=== PATIENT | male | born 1955 | race Hispanic/Latino ===

== ENCOUNTER 2022-10-04 19:43 | Observation (INO) | payer OTHER ==
[~2022-10-04] VITALS: Ht 180.3 cm; Wt 93.6 kg
[2022-10-04 20:03] LABS: BASOPHILS % (AUTO) 0.7 % (0.0-5.0); EOSINOPHILS % (AUTO) 1.4 % (0.0-8.0); HEMATOCRIT 30.9 % (42-54); LYMPHOCYTES % (AUTO) 19.2 % (21.0-51.0); MEAN CORPUSCULAR HEMOGLOBIN 31.5 pg (27.0-33.0); MEAN CORPUSCULAR HGB CONC 33.7 g/dL (32.0-36.0); MEAN CORPUSCULAR VOLUME 93.6 fL (79-99); MONOCYTES % (AUTO) 11.9 % (3.0-13.0); NEUTROPHILS % (AUTO) 66.6 % (40.0-77.0); PLATELET COUNT (AUTO) 145 K/uL (130-400); RED CELL DISTRIBUTION WIDTH 14.7 % (11.0-15.5); WHITE BLOOD COUNT (AUTO) 4.3 K/uL (4.8-10.8)
[2022-10-04 20:05] LABS: APPEARANCE,URINE CLEAR (CLEAR); BILIRUBIN,URINE NEGATIVE (NEGATIVE); COLOR,URINE YELLOW (YELLOW); GLUCOSE, URINE (UA) NEGATIVE (NEGATIVE); KETONES,URINE NEGATIVE (NEGATIVE); LEUKOCYTE ESTERASE ,URINE NEGATIVE Leu/uL (NEGATIVE); NITRATE,URINE NEGATIVE (NEGATIVE); OCCULT BLOOD,URINE NEGATIVE (NEGATIVE); PH,URINE 6.5 (5.0-8.0); PROTEIN,URINE 10 mg/dL (NEGATIVE)
[2022-10-04 20:07] LABS: MUCUS,URINE RARE LPF (None Seen); SQUAMOUS EPITHELIAL CELL,UR RARE /HPF (0-2)
[2022-10-04 20:12] LABS: CARBON DIOXIDE 29 mmol/L (21-32); CHLORIDE 103 mmol/L (101-111); CREATININE 1.6 mg/dL (0.5-1.5); GLOMERULAR FILTR. RATE CALC 48 mL/min (>90); GLUCOSE,RANDOM 97 mg/dL (70-105); POTASSIUM 3.8 mmol/L (3.5-5.1); SODIUM SERUM 137 mmol/L (136-145); UREA NITROGEN, BLOOD 21 mg/dL (7-18)
[2022-10-04 20:16] LABS: ALANINE AMINOTRANSFERASE 15 U/L (12-78); ALBUMIN 2.5 g/dL (3.5-5.0); ASPARTATE AMINOTRANSFERASE 28 U/L (10-37); TOTAL PROTEIN, SERUM 5.7 g/dL (6.0-8.3)
[2022-10-04 20:20] LABS: LIPASE < 50 U/L (114-286)
[2022-10-05] MEDS ORDERED: ACETAMINOPHEN 325 MG TAB PO PRN ×2 (01:30)
[2022-10-05] MEDS ORDERED: HYDROMORPHONE 1 MG INJ IV PRN (01:30)
[2022-10-05] MEDS ORDERED: HYDROCODONE/ACETAMINOPHEN 5/325 MG TAB PO PRN (01:30)
[2022-10-05] MEDS ORDERED: ONDANSETRON 4MG INJ IV PRN (01:30)
[2022-10-05] MEDS: FUROSEMIDE 40MG VIAL IV SCH ×2 (02:38→15:39)
[2022-10-05] MEDS: FAMOTIDINE 20MG TAB PO SCH (08:09)
[2022-10-05] MEDS: LACTULOSE 20 GM/30 ML UDCUP PO SCH ×2 (08:09→20:54)
[2022-10-05 10:30] VITALS: BP 129/72
[2022-10-05 16:00] VITALS: BP 122/70
[2022-10-05] MEDS ORDERED: FURO40TA5 PO (17:43)
[2022-10-05 20:00] VITALS: BP 127/70
[2022-10-06] VITALS: BP 120/57
[2022-10-06] MEDS: FUROSEMIDE 40MG VIAL IV SCH ×2 (03:02→14:11)
[2022-10-06 04:00] VITALS: BP 113/68
[2022-10-06 06:20] LABS: BASOPHILS % (AUTO) 0.9 % (0.0-5.0); EOSINOPHILS % (AUTO) 2.5 % (0.0-8.0); HEMATOCRIT 34.8 % (42-54); LYMPHOCYTES % (AUTO) 13.6 % (21.0-51.0); MEAN CORPUSCULAR HGB CONC 32.2 g/dL (32.0-36.0); MEAN CORPUSCULAR VOLUME 96.4 fL (79-99); MONOCYTES % (AUTO) 11.6 % (3.0-13.0); PLATELET COUNT (AUTO) 114 K/uL (130-400); RED BLOOD CELL COUNT(AUTO) 3.61 MIL/uL (4.50-6.20); RED CELL DISTRIBUTION WIDTH 14.6 % (11.0-15.5); WHITE BLOOD COUNT (AUTO) 4.5 K/uL (4.8-10.8)
[2022-10-06 06:40] LABS: CREATININE 1.6 mg/dL (0.5-1.5); MAGNESIUM 1.8 mg/dL (1.80-2.40); PHOSPHORUS 4.5 mg/dL (2.5-4.9); POTASSIUM 3.4 mmol/L (3.5-5.1)
[2022-10-06 08:00] VITALS: BP 112/56
[2022-10-06 08:38] LABS: INR 0.99 (0.85-1.15); PROTHROMBIN TIME 10.8 SEC (9.6-11.6)
[2022-10-06 08:39] LABS: PARTIAL THROMBOPLASTIN TIME 33.7 SEC (26.3-35.5)
[2022-10-06] MEDS: LACTULOSE 20 GM/30 ML UDCUP PO SCH (09:28)
[2022-10-06] MEDS: FAMOTIDINE 20MG TAB PO SCH (09:28)
[2022-10-06] MEDS ORDERED: MAGNESIUM HYDROXIDE 30 ML/UDCUP PO SCH (10:00)
[2022-10-06] MEDS ORDERED: LIDOCAINE HCL 1% 20 ML VIAL ONE (10:30)
[2022-10-06] MEDS ORDERED: ALBUMIN (HUMAN) 25% 100 ML IV SCH (11:00)
[2022-10-06] MEDS ORDERED: ALBUMIN (HUMAN) 25% 200 ML IV SCH (11:00)
[2022-10-06 12:31] LABS: BODY FLUID RBC 10 /cu. mm.; BODY FLUID WBC 288 /cu. mm.
[2022-10-06 13:06] LABS: BF LYMPHOCYTE 32 %; BF MESOTHELIAL 66 %
[2022-10-06 13:14] LABS: APPEARANCE BODY FLUID CLOUDY (CLEAR); SPECIMENTYPE,BODY FLUID ASCITES
[2022-10-06 13:15] LABS: COLOR,BODY FLUID LT YELLOW (LT YELLOW); TOTAL VOLUME,BODY FLUID 8200 mL
[2022-10-06] MEDS ORDERED: POTASSIUM CHLORIDE 10% ELIXIR 20 MEQ/15 ML UDCUP PO PRN (13:30)
[2022-10-06] MEDS ORDERED: MAGNESIUM 2GM PREMIX 50ML 50 ML IV PRN (13:30)
[2022-10-06] MEDS ORDERED: KCL 20 MEQ ERTAB PO PRN (13:30)
[2022-10-06] MEDS ORDERED: POTASSIUM CHLORIDE 20MEQ/100ML 100 ML IV PRN (13:30)
== END 2022-10-06 18:30 | disposition still patient (30) ==
LOC: EDH 19:43 → EDHIP 10-05 01:02 → INTOOBSV 10-05 01:02 → 3BH 10-05 10:30
PROVIDERS: ADMIT Internal Medicine; ATTEND Internal Medicine
DX: J96.01 Acute respiratory failure with hypoxia (principal); R18.8 Other ascites; K74.69 Other cirrhosis of liver; D64.9 Anemia, unspecified; D61.818 Other pancytopenia; E43 Unspecified severe protein-calorie malnutrition; C16.9 Malignant neoplasm of stomach, unspecified; I10 Essential (primary) hypertension; E11.9 Type 2 diabetes mellitus without complications; Z68.28 Body mass index [BMI] 28.0-28.9, adult; Z51.5 Encounter for palliative care; Z59.86 Financial insecurity; Z79.899 Other long term (current) drug therapy; Z98.890 Other specified postprocedural states; Z79.4 Long term (current) use of insulin
CPT/HCPCS: 99285; 80053; 83690; 85025 ×2; 81001; 36415 ×3; 74176; 96374; 96376 ×2; 96375; 82140; 86850; 86900; 86901; 71045; 83735; 84100; 80048; 89051; 85610; 85730; 87071; 87205; 49083; J1170; J2405; J1940 ×4; A4600; G0378 ×2; C1729

== ENCOUNTER 2022-10-14 04:50 | Emergency (ER) | payer OTHER ==
[~2022-10-14] VITALS: Ht 180.3 cm; Wt 89.8 kg
[~2022-10-14 04:50] MED LIST: FURO40TA5 PO
[2022-10-14 05:22] LABS: BASOPHILS % (AUTO) 0.5 % (0.0-5.0); EOSINOPHILS % (AUTO) 2.3 % (0.0-8.0); HEMATOCRIT 36.8 % (42-54); LYMPHOCYTES % (AUTO) 22.7 % (21.0-51.0); MEAN CORPUSCULAR HGB CONC 32.9 g/dL (32.0-36.0); MEAN CORPUSCULAR VOLUME 94.4 fL (79-99); MONOCYTES % (AUTO) 12.6 % (3.0-13.0); NEUTROPHILS % (AUTO) 61.6 % (40.0-77.0); PLATELET COUNT (AUTO) 128 K/uL (130-400); RED CELL DISTRIBUTION WIDTH 14.4 % (11.0-15.5); WHITE BLOOD COUNT (AUTO) 3.9 K/uL (4.8-10.8)
[2022-10-14 05:37] LABS: ALANINE AMINOTRANSFERASE 18 U/L (12-78); ALBUMIN 2.6 g/dL (3.5-5.0); ASPARTATE AMINOTRANSFERASE 28 U/L (10-37); CARBON DIOXIDE 34 mmol/L (21-32); CHLORIDE 100 mmol/L (101-111); CREATININE 1.6 mg/dL (0.5-1.5); GLOMERULAR FILTR. RATE CALC 48 mL/min (>90); GLUCOSE,RANDOM 113 mg/dL (70-105); POTASSIUM 4.1 mmol/L (3.5-5.1); SODIUM SERUM 138 mmol/L (136-145); TOTAL PROTEIN, SERUM 6.4 g/dL (6.0-8.3); UREA NITROGEN, BLOOD 30 mg/dL (7-18)
[2022-10-14 05:40] LABS: LIPASE < 50 U/L (114-286)
[2022-10-14 06:06] LABS: INR 0.93 (0.85-1.15)
[2022-10-14] MEDS ORDERED: SODIUM BICARB 50MEQ 50ML VIAL 50 ML ONE (08:27)
[2022-10-14] MEDS ORDERED: LIDOCAINE HCL 1% 20 ML VIAL ONE (08:27)
[2022-10-14] MEDS ORDERED: ALBUMIN (HUMAN) 25% 200 ML IV ONE (08:28)
[2022-10-14 10:09] VITALS: BP 108/64
== END 2022-10-14 10:51 | disposition home or self-care (01) ==
LOC: EDH 04:50
DX: K74.60 Unspecified cirrhosis of liver (principal); R18.8 Other ascites; I10 Essential (primary) hypertension; E11.9 Type 2 diabetes mellitus without complications; Z98.890 Other specified postprocedural states; Z88.8 Allergy status to other drugs, medicaments and biological substances
CPT/HCPCS: 49083; 99285; 96365; 80053; 82140; 83690; 85025; 85610; 85730; 36415; P9046; J3490; C1729

== ENCOUNTER 2022-11-05 12:56 | Emergency (ER) | payer OTHER, MEDICARE ==
[~2022-11-05] VITALS: Ht 180.3 cm; Wt 84.4 kg
[~2022-11-05 12:56] MED LIST changes: +LACT10SO9 PO; +MIDO10TA PO
[2022-11-05 13:31] LABS: BASOPHILS % (AUTO) 0.9 % (0.0-5.0); EOSINOPHILS % (AUTO) 1.8 % (0.0-8.0); HEMATOCRIT 37.2 % (42-54); MEAN CORPUSCULAR HEMOGLOBIN 30.2 pg (27.0-33.0); MEAN CORPUSCULAR HGB CONC 33.1 g/dL (32.0-36.0); MEAN CORPUSCULAR VOLUME 91.4 fL (79-99); MONOCYTES % (AUTO) 9.9 % (3.0-13.0); NEUTROPHILS % (AUTO) 68.2 % (40.0-77.0); PLATELET COUNT (AUTO) 175 K/uL (130-400); RED BLOOD CELL COUNT(AUTO) 4.07 MIL/uL (4.50-6.20); RED CELL DISTRIBUTION WIDTH 14.5 % (11.0-15.5); WHITE BLOOD COUNT (AUTO) 4.4 K/uL (4.8-10.8)
[2022-11-05 13:47] LABS: CREATININE 1.5 mg/dL (0.5-1.5); POTASSIUM 5.2 mmol/L (3.5-5.1)
[2022-11-05 13:51] LABS: ALBUMIN 2.4 g/dL (3.5-5.0); TOTAL PROTEIN, SERUM 5.4 g/dL (6.0-8.3)
[2022-11-05] MEDS ORDERED: IOHEXOL 350 MG/ML 100ML INFUS..BTL IV ONE (14:26)
[2022-11-05] MEDS ORDERED: 0.9%NACL 1000ML 1,000 ML IV ONE (15:00)
[2022-11-05 15:55] VITALS: BP 140/70
== END 2022-11-05 15:57 | disposition home or self-care (01) ==
LOC: EDH 12:56
DX: R18.8 Other ascites (principal); K74.60 Unspecified cirrhosis of liver; E78.00 Pure hypercholesterolemia, unspecified; I10 Essential (primary) hypertension; Z88.1 Allergy status to other antibiotic agents; Z85.028 Personal history of other malignant neoplasm of stomach
CPT/HCPCS: 99285; 74177; 96360; 71045; 80053; 83690; 85025; 83605; 36415; 93005; J7030; Q9967

== ENCOUNTER 2022-11-06 20:47 | Emergency (ER) | payer OTHER, MEDICARE ==
[~2022-11-06] VITALS: Ht 180.3 cm; Wt 72.6 kg
[2022-11-06 21:46] LABS: BASOPHILS % (AUTO) 0.9 % (0.0-5.0); EOSINOPHILS % (AUTO) 1.6 % (0.0-8.0); HEMATOCRIT 35.7 % (42-54); LYMPHOCYTES % (AUTO) 22.1 % (21.0-51.0); MEAN CORPUSCULAR HGB CONC 33.3 g/dL (32.0-36.0); MONOCYTES % (AUTO) 12.1 % (3.0-13.0); NEUTROPHILS % (AUTO) 63.1 % (40.0-77.0); PLATELET COUNT (AUTO) 144 K/uL (130-400); RED BLOOD CELL COUNT(AUTO) 3.84 MIL/uL (4.50-6.20); RED CELL DISTRIBUTION WIDTH 14.5 % (11.0-15.5); WHITE BLOOD COUNT (AUTO) 4.5 K/uL (4.8-10.8)
[2022-11-06 22:06] LABS: INR 0.93 (0.85-1.15); PROTHROMBIN TIME 10.2 SEC (9.6-11.6)
[2022-11-06 22:07] LABS: ALBUMIN 2.3 g/dL (3.5-5.0); CREATININE 1.6 mg/dL (0.5-1.5); PARTIAL THROMBOPLASTIN TIME 29.4 SEC (26.3-35.5); POTASSIUM 5.1 mmol/L (3.5-5.1); TOTAL PROTEIN, SERUM 5.4 g/dL (6.0-8.3)
[2022-11-06 23:50] VITALS: BP 118/67
== END 2022-11-06 23:58 | disposition home or self-care (01) ==
LOC: EDH 20:47
DX: R13.10 Dysphagia, unspecified (principal); I10 Essential (primary) hypertension; R10.31 Right lower quadrant pain; Z79.899 Other long term (current) drug therapy; Z98.890 Other specified postprocedural states; Z85.028 Personal history of other malignant neoplasm of stomach; Z88.1 Allergy status to other antibiotic agents
CPT/HCPCS: 36415; 71045; 80053; 82550; 84484; 85025; 85610; 85730; 93005

== ENCOUNTER 2022-12-12 21:02 | Emergency (ER) | payer OTHER, MEDICARE ==
[~2022-12-12] VITALS: Ht 180.3 cm; Wt 74.8 kg
[2022-12-12 21:27] LABS: BASOPHILS % (AUTO) 0.2 % (0.0-5.0); EOSINOPHILS % (AUTO) 0.4 % (0.0-8.0); HEMATOCRIT 31.6 % (42-54); LYMPHOCYTES % (AUTO) 7.3 % (21.0-51.0); MEAN CORPUSCULAR HEMOGLOBIN 31.3 pg (27.0-33.0); MEAN CORPUSCULAR HGB CONC 34.8 g/dL (32.0-36.0); MEAN CORPUSCULAR VOLUME 89.8 fL (79-99); MONOCYTES % (AUTO) 3.3 % (3.0-13.0); PLATELET COUNT (AUTO) 110 K/uL (130-400); RED BLOOD CELL COUNT(AUTO) 3.52 MIL/uL (4.50-6.20); RED CELL DISTRIBUTION WIDTH 14.8 % (11.0-15.5); WHITE BLOOD COUNT (AUTO) 9.1 K/uL (4.8-10.8)
[2022-12-12 21:47] LABS: CREATININE 1.2 mg/dL (0.5-1.5); POTASSIUM 4.6 mmol/L (3.5-5.1)
[2022-12-12 21:52] LABS: ALBUMIN 2.2 g/dL (3.5-5.0); TOTAL PROTEIN, SERUM 5.3 g/dL (6.0-8.3)
[2022-12-12 23:33] LABS: APPEARANCE,URINE CLEAR (CLEAR); BILIRUBIN,URINE NEGATIVE (NEGATIVE); COLOR,URINE YELLOW (YELLOW); GLUCOSE, URINE (UA) NEGATIVE (NEGATIVE); KETONES,URINE NEGATIVE (NEGATIVE); LEUKOCYTE ESTERASE ,URINE NEGATIVE Leu/uL (NEGATIVE); NITRATE,URINE NEGATIVE (NEGATIVE); OCCULT BLOOD,URINE NEGATIVE (NEGATIVE); PROTEIN,URINE NEGATIVE (NEGATIVE); UROBILINOGEN,URINE 0.2 mg/dL (0.2-1.0)
[2022-12-13 01:42] VITALS: BP 115/67
== END 2022-12-13 01:43 | disposition home or self-care (01) ==
LOC: EDH 21:02
DX: C16.9 Malignant neoplasm of stomach, unspecified (principal); D64.9 Anemia, unspecified; Z88.1 Allergy status to other antibiotic agents; Z20.822 Contact with and (suspected) exposure to COVID-19
CPT/HCPCS: 99285; 71045; 87635; 84484; 80053; 85025; 87040 ×2; 87880; 87804 ×2; 81003; 36415; C9803

== ENCOUNTER 2022-12-16 12:31 | Observation (INO) | payer OTHER, MEDICARE ==
[~2022-12-16] VITALS: Ht 172.7 cm; Wt 73.8 kg
[2022-12-16] MEDS ORDERED: ONDANSETRON 4MG INJ IVP ONE (13:00)
[2022-12-16] MEDS ORDERED: LACTATED RINGERS 1000ML 1,000 ML IV ONE (13:00)
[2022-12-16] MEDS ORDERED: MORPHINE 4 MG SYG IVP ONE (13:00)
[2022-12-16 13:31] LABS: BASOPHILS % (AUTO) 0.1 % (0.0-5.0); EOSINOPHILS % (AUTO) 0.1 % (0.0-8.0); HEMATOCRIT 33.8 % (42-54); LYMPHOCYTES % (AUTO) 3.8 % (21.0-51.0); MEAN CORPUSCULAR HEMOGLOBIN 31.3 pg (27.0-33.0); MEAN CORPUSCULAR HGB CONC 34.6 g/dL (32.0-36.0); MEAN CORPUSCULAR VOLUME 90.4 fL (79-99); NEUTROPHILS % (AUTO) 86.5 % (40.0-77.0); PLATELET COUNT (AUTO) 155 K/uL (130-400); RED BLOOD CELL COUNT(AUTO) 3.74 MIL/uL (4.50-6.20); RED CELL DISTRIBUTION WIDTH 14.8 % (11.0-15.5); WHITE BLOOD COUNT (AUTO) 7.5 K/uL (4.8-10.8)
[2022-12-16 13:33] LABS: APPEARANCE,URINE CLEAR (CLEAR); BILIRUBIN,URINE NEGATIVE (NEGATIVE); COLOR,URINE YELLOW (YELLOW); GLUCOSE, URINE (UA) NEGATIVE (NEGATIVE); KETONES,URINE NEGATIVE (NEGATIVE); LEUKOCYTE ESTERASE ,URINE NEGATIVE Leu/uL (NEGATIVE); NITRATE,URINE NEGATIVE (NEGATIVE); OCCULT BLOOD,URINE NEGATIVE (NEGATIVE); PROTEIN,URINE 10 mg/dL (NEGATIVE)
[2022-12-16 13:41] LABS: CARBON DIOXIDE 25 mmol/L (21-32); CHLORIDE 95 mmol/L (101-111); CREATININE 1.6 mg/dL (0.5-1.5); GLOMERULAR FILTR. RATE CALC 48 mL/min (>90); GLUCOSE,RANDOM 175 mg/dL (70-105); POTASSIUM 5.1 mmol/L (3.5-5.1); SODIUM SERUM 127 mmol/L (136-145); UREA NITROGEN, BLOOD 38 mg/dL (7-18)
[2022-12-16 13:45] LABS: ALANINE AMINOTRANSFERASE 44 U/L (12-78); ALBUMIN 1.9 g/dL (3.5-5.0); ASPARTATE AMINOTRANSFERASE 33 U/L (10-37); TOTAL PROTEIN, SERUM 5.4 g/dL (6.0-8.3)
[2022-12-16 13:51] LABS: BACTERIA,URINE RARE /HPF (None Seen); MUCUS,URINE RARE LPF (None Seen); RBC,URINE 0-1 /HPF (0-1); SQUAMOUS EPITHELIAL CELL,UR RARE /HPF (0-2); WBC,URINE 0-1 /HPF (0-1)
[2022-12-16 13:53] LABS: LIPASE < 50 U/L (114-286)
[2022-12-16] MEDS ORDERED: IOHEXOL-350 75 ML VIAL IV ONE (14:54)
[2022-12-16] MEDS ORDERED: GUAIFENESIN SUGAR-FREE 100 MG/5 ML UDCUP PO PRN (16:30)
[2022-12-16] MEDS ORDERED: LACTULOSE 20 GM/30 ML UDCUP PO PRN (16:30)
[2022-12-16] MEDS ORDERED: ALBUTEROL 0.083% 2.5 MG/3 ML INH IH PRN (16:30)
[2022-12-16] MEDS ORDERED: ACETAMINOPHEN 325 MG TAB PO PRN ×2 (16:30)
[2022-12-16] MEDS ORDERED: DOCUSATE SODIUM 100 MG CAP PO PRN (16:30)
[2022-12-16] MEDS ORDERED: LOPERAMIDE HCL 2 MG CAP PO PRN (16:30)
[2022-12-16] MEDS ORDERED: ARTIFICAL TEARS SOL 15 ML OP PRN (16:30)
[2022-12-16] MEDS ORDERED: DEXTROSE 50%-WATER 50 ML DISP.SYRIN IV PRN (16:30)
[2022-12-16] MEDS ORDERED: ONDANSETRON 4MG INJ IV PRN (16:30)
[2022-12-16] MEDS ORDERED: MAGNESIUM 2GM PREMIX 50ML 50 ML IV PRN (16:30)
[2022-12-16] MEDS ORDERED: HYDRALAZINE 25MG TABLET PO PRN (16:30)
[2022-12-16] MEDS ORDERED: GLUCAGON 1MG KIT 1 MG ML IM PRN (16:30)
[2022-12-16] MEDS ORDERED: ALPRAZOLAM 0.5 MG TABLET PO PRN (16:30)
[2022-12-16] MEDS ORDERED: CEFTRIAXONE 2GM VIAL IVPB SCH (16:30)
[2022-12-16] MEDS ORDERED: DIPHENHYDRAMINE HCL 25 MG CAPSULE PO PRN (16:30)
[2022-12-16] MEDS ORDERED: DiphenhydrAMINE HCL 50 MG/ML VIAL IV PRN (16:30)
[2022-12-16] MEDS ORDERED: POTASSIUM CHLORIDE 10MEQ/100ML 100 ML IV PRN (16:30)
[2022-12-16] MEDS ORDERED: POLYETHYLENE GLYCOL 3350 17 GM POWD.PACK PO PRN (16:30)
[2022-12-16] MEDS ORDERED: GUAIFENESIN-DM 200/20 MG 10 ML PO PRN (16:30)
[2022-12-16 16:58] LABS: INR 0.93 (0.85-1.15); PROTHROMBIN TIME 10.4 SEC (9.6-11.6)
[2022-12-16 16:59] LABS: PARTIAL THROMBOPLASTIN TIME 32.6 SEC (26.3-35.5)
[2022-12-16 22:42] VITALS: BP 124/74
[2022-12-17 04:00] VITALS: BP 113/57
[2022-12-17 07:05] LABS: ALBUMIN 1.7 g/dL (3.5-5.0); CREATININE 1.3 mg/dL (0.5-1.5); MAGNESIUM 1.8 mg/dL (1.80-2.40); POTASSIUM 4.8 mmol/L (3.5-5.1); TOTAL PROTEIN, SERUM 4.9 g/dL (6.0-8.3)
[2022-12-17 08:00] VITALS: BP 100/63
[2022-12-17 12:00] VITALS: BP 125/75
== END 2022-12-17 17:20 | disposition home or self-care (01) ==
LOC: EDH 12:31 → EDHIP 16:19 → 3CH 22:01
PROVIDERS: ADMIT Internal Medicine Critical Care Medicine; ATTEND Internal Medicine Critical Care Medicine
DX: T85.611A Breakdown (mechanical) of intraperitoneal dialysis catheter, initial encounter (principal); K74.60 Unspecified cirrhosis of liver; R18.8 Other ascites; I12.9 Hypertensive chronic kidney disease with stage 1 through stage 4 chronic kidney disease, or unspecified chronic kidney disease; N18.9 Chronic kidney disease, unspecified; N17.9 Acute kidney failure, unspecified; E87.1 Hypo-osmolality and hyponatremia; E78.5 Hyperlipidemia, unspecified; E88.09 Other disorders of plasma-protein metabolism, not elsewhere classified; Z85.028 Personal history of other malignant neoplasm of stomach; Z92.21 Personal history of antineoplastic chemotherapy; Z79.899 Other long term (current) drug therapy
CPT/HCPCS: 96361; 96365; 96366; 96375; 99285; 80053 ×2; 83880; 83690; 85025; 85610; 85730; 83605; 81001; 36415 ×2; 74177; 83735; G0378 ×25; J7120; J0696; J2405; J2270; Q9967

== ENCOUNTER 2022-12-19 21:22 | Emergency (ER) | payer OTHER, MEDICARE ==
[~2022-12-19] VITALS: Ht 180.3 cm; Wt 74.8 kg
[2022-12-19 22:06] LABS: BASOPHILS % (AUTO) 0.2 % (0.0-5.0); EOSINOPHILS % (AUTO) 0.5 % (0.0-8.0); HEMATOCRIT 27.7 % (42-54); LYMPHOCYTES % (AUTO) 6.3 % (21.0-51.0); MEAN CORPUSCULAR HEMOGLOBIN 32.2 pg (27.0-33.0); MEAN CORPUSCULAR HGB CONC 35.4 g/dL (32.0-36.0); MEAN CORPUSCULAR VOLUME 91.1 fL (79-99); MONOCYTES % (AUTO) 8.9 % (3.0-13.0); NEUTROPHILS % (AUTO) 83.2 % (40.0-77.0); PLATELET COUNT (AUTO) 186 K/uL (130-400); RED BLOOD CELL COUNT(AUTO) 3.04 MIL/uL (4.50-6.20); RED CELL DISTRIBUTION WIDTH 15.1 % (11.0-15.5); WHITE BLOOD COUNT (AUTO) 5.7 K/uL (4.8-10.8)
[2022-12-19 22:08] VITALS: BP 104/64
[2022-12-19 22:28] LABS: CREATININE 1.3 mg/dL (0.5-1.5); POTASSIUM 4.8 mmol/L (3.5-5.1)
[2022-12-19 22:33] LABS: ALBUMIN 1.7 g/dL (3.5-5.0); TOTAL PROTEIN, SERUM 5.1 g/dL (6.0-8.3)
[2022-12-19] MEDS ORDERED: TRAM50TA4 PO ×2 (23:36→23:38)
[2022-12-20] MEDS ORDERED: MORPHINE 2 MG SYG IVP ONE
[2022-12-20] MEDS ORDERED: ONDANSETRON 4MG INJ IVP ONE
== END 2022-12-20 00:17 | disposition home or self-care (01) ==
LOC: EDH 21:22
DX: C78.6 Secondary malignant neoplasm of retroperitoneum and peritoneum (principal); I10 Essential (primary) hypertension; Z88.1 Allergy status to other antibiotic agents
CPT/HCPCS: 99284; 96374; 96375; 80053; 85025; 36415; J2270; J2405

== ENCOUNTER 2023-04-15 10:07 | Emergency (ER) | payer MEDICARE ==
[~2023-04-15] VITALS: Ht 180.3 cm; Wt 80.7 kg
[~2023-04-15 10:07] MED LIST changes: +TRAM50TA4 PO
[2023-04-15 10:53] LABS: EOSINOPHILS # (AUTO) 0.03 K/uL (0.00-0.70); EOSINOPHILS % (AUTO) 1.9 % (0.0-8.0); IMMATURE GRANULOCYTE ABSOLUTE 0.01 K/uL (0-1); LYMPHOCYTES # (AUTO) 0.6 K/uL (1.0-4.8); LYMPHOCYTES % (AUTO) 37.6 % (21.0-51.0); MEAN CORPUSCULAR HEMOGLOBIN 33.8 pg (27.0-33.0); MEAN CORPUSCULAR HGB CONC 32.7 g/dL (32.0-36.0); MEAN CORPUSCULAR VOLUME 103.4 fL (79-99); MONOCYTES # (AUTO) 0.3 K/uL (0.1-1.0); MONOCYTES % (AUTO) 15.9 % (3.0-13.0); NEUTROPHILS # (AUTO) 0.7 K/uL (1.8-7.7); PLATELET COUNT (AUTO) 133 K/uL (130-400); RED CELL DISTRIBUTION WIDTH 17.7 % (11.0-15.5); WHITE BLOOD COUNT (AUTO) 1.6 K/uL (4.8-10.8)
[2023-04-15 11:03] LABS: CREATININE 1.3 mg/dL (0.5-1.5); POTASSIUM 4.2 mmol/L (3.5-5.1)
[2023-04-15 11:57] LABS: INR < 0.93 (0.85-1.15); PROTHROMBIN TIME 9.8 SEC (9.6-11.6)
[2023-04-15 11:58] LABS: PARTIAL THROMBOPLASTIN TIME 28.5 SEC (26.3-35.5)
[2023-04-15] MEDS ORDERED: SODIUM BICARB 50MEQ 50ML VIAL 50 ML ONE (12:22)
[2023-04-15] MEDS ORDERED: ALBUMIN (HUMAN) 25% 200 ML IV ONE (12:22)
[2023-04-15 13:07] VITALS: BP 111/67; PULSE 78; RESP 16; O2SAT 98
== END 2023-04-15 13:41 | disposition home or self-care (01) ==
LOC: EDH 10:07
DX: R18.8 Other ascites (principal); K74.60 Unspecified cirrhosis of liver; R10.9 Unspecified abdominal pain; Z85.028 Personal history of other malignant neoplasm of stomach; Z88.1 Allergy status to other antibiotic agents
CPT/HCPCS: 49083; 99285; 96365; 80048; 85025; 85610; 85730; 36415; P9046; J3490; C1729

== ENCOUNTER 2023-11-19 06:37 | Day surgery (SDC) | payer MEDICARE ==
[2023-11-19] VITALS (11 sets, daily range): BP systolic 85–147; BP diastolic 48–74; PULSE 46–78; RESP 12–16
[~2023-11-19] VITALS: Ht 177.8 cm; Wt 77.6 kg
[~2023-11-19 06:37] MED LIST changes: +GABA300C PO; +LINA290C PO; -MIDO10TA PO; +SPIR100T PO; -TRAM50TA4 PO; +TRIF1TAB PO
[2023-11-19] MEDS: 0.9%NACL 1000ML 1,000 ML IV ONE (08:45)
[2023-11-19] MEDS ORDERED: PROPOFOL 10 MG/ML 20ML VIAL IV ONE (08:48)
== END 2023-11-19 10:54 | disposition home or self-care (01) ==
LOC: ENDO 06:37 → DAH 06:37 → ENDO 10:54
PROVIDERS: ATTEND Internal Medicine Gastroenterology
DX: R93.3 Abnormal findings on diagnostic imaging of other parts of digestive tract (principal); K57.30 Diverticulosis of large intestine without perforation or abscess without bleeding; K63.89 Other specified diseases of intestine; R18.8 Other ascites; K74.69 Other cirrhosis of liver; K59.04 Chronic idiopathic constipation; K64.8 Other hemorrhoids; E11.9 Type 2 diabetes mellitus without complications; R77.2 Abnormality of alphafetoprotein; Z86.010 Personal history of colon polyps; Z79.899 Other long term (current) drug therapy
CPT/HCPCS: 45378; 82948; A4606; J2704; J7030; A4215; A4221; A4222; A4223; A4620; A4663; A7002; J3490